=== PATIENT | female | born 1985 | race Caucasian/White ===

== ENCOUNTER 2018-09-17 11:51 | Emergency (ER) | payer OTHER ==
[~2018-09-17 11:51] MED LIST: BUPR300T55 PO; HYDR2TAB4 PO; IBUP800T37 PO; MULT-1381 PO; OXYC-373 PO; SERT-1 PO; ZOLP-1 PO
--- NOTE | 2018-09-17 11:58 | ER Report ---
History and Physical Time Seen By MD: 11:58 HPI/ROS CHIEF COMPLAINT: Nausea, vomiting and diarrhea HISTORY OF PRESENT ILLNESS: This is a 33-year-old female presents to emergency department for nausea, vomiting and diarrhea. Patient states that last night she donated plasma by [employer] [facility] [place], states she's been doing this twice a week since July. However last night she states that about fdc through the donation she be Achy, chills some nausea and vomiting last night. She called by [facility] [place] this morning, they said was due to dehydration, patient states that she's been drinking water all night. She's been having severe muscle cramps, and continued nausea, vomiting and diarrhea, no blood noted. She states she did have chest discomfort last night however that was transient, has not had chest pain or shortness of breath today. REVIEW OF SYSTEMS: Constitutional: As above. Eyes: No discharge. ENT: No sore throat. Cardiovascular: As above. Respiratory: No cough, no shortness of breath. Gastrointestinal: No abdominal pain, no vomiting. Genitourinary: No hematuria. Musculoskeletal: As above. Skin: No rashes. Neurological: No headache. Allergies: Coded Allergies: amoxicillin (Verified Allergy, Severe, ANAPHYLAXIS, 09/17/18) Penicillins (Verified Allergy, Intermediate, fever, rash, 09/17/18) Home Meds Active Scripts Ibuprofen (IBUPROFEN) 800 Mg Tablet, 1 TAB PO Q8H, #30 TAB Take with food every 8 hours. Prov:TICO CARDOSO MD 01/09/16 Reported Medications Lisdexamfetamine Dimesylate (Vyvanse) 10 Mg Capsule, 10 MG PO QDAY 09/17/18 [Paraguard] No Conflict Check, IJ 09/17/18 Multivitamin (ONCE DAILY) 1 Each Tablet, 1 EACH PO QDAY 01/04/16 Zolpidem Tartrate (AMBIEN) 5 Mg Tablet, 1 TAB PO QHS, TAB 01/04/16 Bupropion Hcl (Wellbutrin Xl) 300 Mg Tab.sr.24h, 150 MG PO QDAY, 0 Refills 08/12/11 Discontinued Reported Medications Sertraline Hcl (ZOLOFT) 50 Mg Tablet, 1 TAB PO QDAY, TAB 01/04/16 Discontinued Scripts Oxycodone Hcl/Acetaminophen (OXYCODONE-ACETAMINOPHEN 5-325) 1 Each Tablet, 1-2 EACH PO Q4H PRN for PAIN, #30 TAB TAKE 1-2 TABLET NEEDED FOR PAIN - NO CLOSER THAN EVERY 4 HOURS. Prov:TICO CARDOSO MD 01/09/16 Hydromorphone Hcl (HYDROMORPHONE HCL) 2 Mg Tablet, 2-4 MG PO Q4H for PAIN, #20 TAB Prov:TICO CARDOSO MD 01/09/16 Past Medical/Surgical History The patient has a past medical and surgical history of pneumonia,, disease, urinary tract infections, foot fracture, bulimia, depression, EGD. Reviewed Nurses Notes: Yes Hx Smoking: No Exposure to Second Hand Smoke?: No Hx Substance Use Disorder: No Hx Alcohol Use: Yes Constitutional Vital Sign - Last 24 Hours 09/17/18 09/17/18 09/17/18 09/17/18 11:57 12:00 12:00 12:15 Temp 98.5 Pulse 93 Resp 12 B/P (MAP) 100/76 (84) 108/73 108/73 (85) 106/76 (86) Pulse Ox 93 O2 Delivery Room Air 09/17/18 09/17/18 09/17/18 09/17/18 12:21 12:26 12:30 12:45 Pulse 93 B/P (MAP) 106/75 (85) 105/76 (86) 91/66 (74) Pulse Ox 94 09/17/18 09/17/18 09/17/18 09/17/18 12:51 13:00 13:05 13:15 Pulse 95 95 Resp 23 27 B/P (MAP) 101/73 (82) 99/70 (80) Pulse Ox 95 97 09/17/18 09/17/18 09/17/18 13:30 13:32 13:35 Pulse 93 B/P (MAP) 109/78 (88) 110/70 (83) Pulse Ox 91 Physical Exam General Appearance: The patient is alert, has no immediate need for airway protection and no signs of toxicity. Eyes: Pupils equal and round no pallor or injection. ENT, Mouth: Mucous membranes are moist. Respiratory: There are no retractions, lungs are clear to auscultation. Cardiovascular: Regular rate and rhythm. Gastrointestinal: Abdomen is soft and non tender, no masses, bowel sounds normal. Neurological: Alert and oriented 4. Moving all extremities. Following all commands. No focal neuro deficits. Skin: Warm and dry, no rashes. Musculoskeletal: Neck is supple non tender. Extremities are nontender, nonswollen and have full range of motion. DIFFERENTIAL DIAGNOSIS: After history and physical exam differential diagnosis was considered for gastroenteritis, electrolyte imbalance, influenza, viral syndrome, dehydration. Medical Decision Making Data Points Result Diagram: 09/17/18 1236 09/17/18 1236 Laboratory Hematology Test 09/17/18 00:00 09/17/18 12:36 Urine Color Straw Urine Clarity Clear Urine pH 7.0 pH (4.8-9.5) Urine Specific [place] 1.003 Urine Protein Negative mg/dL (NEGATIVE) Urine Glucose (UA) Negative mg/dL (NEGATIVE) Urine Ketones Trace mg/dL (NEGATIVE) Urine Blood Negative (NEGATIVE) Urine Nitrite Negative (NEGATIVE) Urine Bilirubin Negative (NEGATIVE) Urine Urobilinogen Negative mg/dL (0.2-1.9) Urine Leukocyte Esterase Negative (NEGATIVE) Urine RBC <1 /HPF (0-2/HPF) Urine WBC <1 /HPF (0-5/HPF) Urine Squamous Epithelial Cells None /LPF (</=FEW) Urine Bacteria Negative /HPF (NONE-FEW) Urine Mucus None /HPF (NONE-FEW) Urine HCG, Qualitative Negative (NEGATIVE) Influenza Virus Type A (PCR) Negative (NEGATIVE) Influenza Virus Type B (PCR) Negative (NEGATIVE) Red Blood Count 4.95 M/uL (4.17-5.56) Mean Corpuscular Volume 90.0 fL (80.0-96.0) Mean Corpuscular Hemoglobin 29.9 pg (26.0-33.0) Mean Corpuscular Hemoglobin Concent 33.2 g/dL (32.0-36.0) Red Cell Distribution Width 13.4 % (11.5-14.5) Mean Platelet Volume 6.6 fL (7.2-11.1) Neutrophils (%) (Auto) 81.4 % (39.4-72.5) Lymphocytes (%) (Auto) 11.5 % (17.6-49.6) Monocytes (%) (Auto) 6.5 % (4.1-12.4) Eosinophils (%) (Auto) 0.4 % (0.4-6.7) Basophils (%) (Auto) 0.2 % (0.3-1.4) Nucleated RBC Relative Count (auto) 0.0 /100WBC Neutrophils # (Auto) 6.8 K/uL (2.0-7.4) Lymphocytes # (Auto) 1.0 K/uL (1.3-3.6) Monocytes # (Auto) 0.5 K/uL (0.3-1.0) Eosinophils # (Auto) 0.0 K/uL (0.0-0.5) Basophils # (Auto) 0.0 K/uL (0.0-0.1) Nucleated RBC Absolute Count (auto) 0.00 K/uL Sodium Level 137 mmol/L (137-145) Potassium Level 3.5 mmol/L (3.5-5.0) Chloride Level 109 mmol/L (98-107) Carbon Dioxide Level 20 mmol/L (22-31) Blood Urea Nitrogen 9 mg/dl (7-18) Creatinine 0.70 mg/dl (0.52-1.04) Glomerular Filtration Rate Calc > 60.0 Random Glucose 79 mg/dl (75-110) Calcium Level 7.9 mg/dl (8.4-10.2) Total Bilirubin 0.6 mg/dl (0.2-1.3) Aspartate Amino Transf (AST/SGOT) 31 U/L (0-35) Alanine Aminotransferase (ALT/SGPT) 35 U/L (0-56) Alkaline Phosphatase 30 U/L (0-126) Total Protein 5.2 g/dl (6.3-8.2) Albumin 3.1 g/dl (3.5-5.0) Lipase 29 U/L (23-300) Chemistry Test 09/17/18 00:00 09/17/18 12:36 Urine Color Straw Urine Clarity Clear Urine pH 7.0 pH (4.8-9.5) Urine Specific [place] 1.003 Urine Protein Negative mg/dL (NEGATIVE) Urine Glucose (UA) Negative mg/dL (NEGATIVE) Urine Ketones Trace mg/dL (NEGATIVE) Urine Blood Negative (NEGATIVE) Urine Nitrite Negative (NEGATIVE) Urine Bilirubin Negative (NEGATIVE) Urine Urobilinogen Negative mg/dL (0.2-1.9) Urine Leukocyte Esterase Negative (NEGATIVE) Urine RBC <1 /HPF (0-2/HPF) Urine WBC <1 /HPF (0-5/HPF) Urine Squamous Epithelial Cells None /LPF (</=FEW) Urine Bacteria Negative /HPF (NONE-FEW) Urine Mucus None /HPF (NONE-FEW) Urine HCG, Qualitative Negative (NEGATIVE) Influenza Virus Type A (PCR) Negative (NEGATIVE) Influenza Virus Type B (PCR) Negative (NEGATIVE) White Blood Count 8.4 k/uL (4.5-11.0) Red Blood Count 4.95 M/uL (4.17-5.56) Hemoglobin 14.8 g/dL (12.0-16.0) Hematocrit 44.5 % (34.0-47.0) Mean Corpuscular Volume 90.0 fL (80.0-96.0) Mean Corpuscular Hemoglobin 29.9 pg (26.0-33.0) Mean Corpuscular Hemoglobin Concent 33.2 g/dL (32.0-36.0) Red Cell Distribution Width 13.4 % (11.5-14.5) Platelet Count 261 K/uL (150-450) Mean Platelet Volume 6.6 fL (7.2-11.1) Neutrophils (%) (Auto) 81.4 % (39.4-72.5) Lymphocytes (%) (Auto) 11.5 % (17.6-49.6) Monocytes (%) (Auto) 6.5 % (4.1-12.4) Eosinophils (%) (Auto) 0.4 % (0.4-6.7) Basophils (%) (Auto) 0.2 % (0.3-1.4) Nucleated RBC Relative Count (auto) 0.0 /100WBC Neutrophils # (Auto) 6.8 K/uL (2.0-7.4) Lymphocytes # (Auto) 1.0 K/uL (1.3-3.6) Monocytes # (Auto) 0.5 K/uL (0.3-1.0) Eosinophils # (Auto) 0.0 K/uL (0.0-0.5) Basophils # (Auto) 0.0 K/uL (0.0-0.1) Nucleated RBC Absolute Count (auto) 0.00 K/uL Glomerular Filtration Rate Calc > 60.0 Calcium Level 7.9 mg/dl (8.4-10.2) Total Bilirubin 0.6 mg/dl (0.2-1.3) Aspartate Amino Transf (AST/SGOT) 31 U/L (0-35) Alanine Aminotransferase (ALT/SGPT) 35 U/L (0-56) Alkaline Phosphatase 30 U/L (0-126) Total Protein 5.2 g/dl (6.3-8.2) Albumin 3.1 g/dl (3.5-5.0) Lipase 29 U/L (23-300) Urinalysis Test 09/17/18 00:00 Urine Color Straw Urine Clarity Clear Urine pH 7.0 pH (4.8-9.5) Urine Specific [place] 1.003 Urine Protein Negative mg/dL (NEGATIVE) Urine Glucose (UA) Negative mg/dL (NEGATIVE) Urine Ketones Trace mg/dL (NEGATIVE) Urine Blood Negative (NEGATIVE) Urine Nitrite Negative (NEGATIVE) Urine Bilirubin Negative (NEGATIVE) Urine Urobilinogen Negative mg/dL (0.2-1.9) Urine Leukocyte Esterase Negative (NEGATIVE) Urine RBC <1 /HPF (0-2/HPF) Urine WBC <1 /HPF (0-5/HPF) Urine Squamous Epithelial Cells None /LPF (</=FEW) Urine Bacteria Negative /HPF (NONE-FEW) Urine Mucus None /HPF (NONE-FEW) Urine HCG, Qualitative Negative (NEGATIVE) ED Course/Re-evaluation Clinical Indication for ER IV: Hydration, IV Access ED Course The patient was admitted to room. A history and physical were obtained. Differential diagnoses were considered. An IV was started. A CBC, CMP and lipase were obtained. A 1 L normal saline bolus was given.CBC negative Y blood cell count, percent neutrophils 81.4, chloride 109, CO2 20, calcium 7.9, albumin 3.1, ketonuria otherwise unremarkable, negative influenza. I reviewed the laboratory studies with the patient, I did tell her that this is likely a viral illness, once at home with her plasma donation, symptoms are suspicious for gastroenteritis. Patient states she does feel better after receiving a liter of saline. I did tell the patient although this is likely gastroenteritis I would reconsider donating plasma as frequently as she does. Patient expressed understanding, was discharged home, was in agreement with this plan care. Decision to Disposition Date: Sep 17, 2018 Decision to Disposition Time: 13:31 Depart Departure Latest Vital Signs Vital Signs Date Time Temp Pulse Resp B/P (MAP) Pulse Ox O2 Delivery O2 Flow Rate FiO2 2/15/19 13:35 93 91 09/17/18 13:32 110/70 (83) 09/17/18 13:05 27 09/17/18 12:00 98.5 Room Air Impression: Primary Impression: Nausea & vomiting Additional Impression: Diarrhea Condition: Improved Disposition: HOME OR SELF-CARE Referrals: SEGUN ALEGRE MD (PCP) 1 Week Patient Instructions: Acute Diarrhea (ED), Acute Nausea and Vomiting (ED), Clear Liquid Diet (ED) Additional Instructions: There were no concerning findings on lab work today. Negative influenza. You may have the start of a gastroenteritis, continue with a clear liquid diet for the next 24 hours, then advance as tolerated. Drink plenty of water. Get plenty of rest. Return to the ED for any other concerns or worsening symptoms. Problem Qualifiers Primary Impression: Nausea & vomiting Vomiting type: unspecified Vomiting Intractability: non-intractable Qualified Codes: R11.2 - Nausea with vomiting, unspecified Additional Impression: Diarrhea Diarrhea type: unspecified type Qualified Codes: R19.7 - Diarrhea, unspecified BRENDA THOMAS SERVICE TECHNICIAN [facility] Sep 17, 2018 11:58
[2018-09-17] MEDS ORDERED: LISD10CA PO (12:06)
[2018-09-17] MEDS ORDERED: PARAGUARD IJ (12:06)
[2018-09-17] MEDS ORDERED: NS(*) 0.9% 1000 ML BAG 1,000 ML IV ONE (12:13)
[2018-09-17] MEDS ORDERED: ONDANSETRON 4 MG/2 ML VIAL IVP ONE (12:15)
[2018-09-17 12:44] LABS: PLATELET COUNT, AUTOMATED 261 K/uL (150-450)
[2018-09-17 13:32] VITALS: BP 110/70
== END 2018-09-17 13:45 | disposition home or self-care (01) ==
LOC: ER 11:57
DX: R11.2 Nausea with vomiting, unspecified (principal); R19.7 Diarrhea, unspecified
CPT/HCPCS: 81001; 81025; 83690; 85025; 87502; 96374; 99283; J2405; J7030; 82040; 82247; 82310; 82374; 82435; 82565; 82947; 84075; 84132; 84155; 84295; 84450; 84460; 84520

== ENCOUNTER → 2019-02-07 | Outpatient (CLI) | payer OTHER ==
[~2019-02-07] MED LIST changes: +LISD10CA PO; +PARAGUARD IJ
== END ==
LOC: LAB 14:59
PROVIDERS: ATTEND Obstetrics & Gynecology
DX: N39.0 Urinary tract infection, site not specified (principal)
CPT/HCPCS: 81001